=== PATIENT | female | born 1970 | race American Indian/Alaskan Native ===

== ENCOUNTER 2019-08-31 12:18 | Outpatient (CLI) | payer BC ==
--- NOTE | 2019-08-31 15:02 | Mammography Report ---
BILATERAL DIGITAL DIAGNOSTIC MAMMOGRAM WITH CAD -- 08/31/2019 RIGHT LIMITED BREAST ULTRASOUND INDICATION: Patient presents for evaluation of focal pain in the right breast. TECHNIQUE: Digital bilateral mammographic imaging was performed. Limited ultrasound was performed. T his examination was interpreted with the benefit of Computer-Aided Detection (CAD) analysis. COMPARISON: Prior mammograms 08/01/2018 and 03/15/2017 FINDINGS: Breast Density: The breasts are heterogeneously dense, which may obscure small masses. MAMMOGRAPHIC FINDINGS: There is no evidence of dominant mass, suspicious calcifications or architectu ral distortion in either breast. An oval mass with associated biopsy clip in the posterior central to 9:00 position of the right breast is slightly decreased in size compared with prior examination, cur rently measuring up to 1.2 cm, previously 1.6 cm; per history sheet, this is a biopsy-proven fibroade noma. Otherwise, there has been no significant change compared with the prior examinations. No mammog raphic abnormality to account for right breast pain, therefore targeted ultrasound subsequently perfo rmed. ULTRASOUND FINDINGS: Targeted ultrasound evaluation was performed of the area of interest. Targeted ultrasound of the area of focal pain in the 6 through 9:00 position of the right breast reveals dens e fibroglandular tissue. No suspicious cystic or solid lesion identified. IMPRESSION: 1. No suspicious mammographic or sonographic abnormality identified to account for area of focal pain in the right breast, therefore clinical correlation is recommended. Follow up recommendation: Routin e yearly BI-RADS Category 2: Benign. A "normal" or negative report should not discourage follow up or biopsy of a clinically significant f inding. A written summary of these findings will be mailed to the patient. The patient will be entered into a mammography reporting system which will generate a reminder letter for the patient's next appointmen t at the appropriate interval. According to the [employer], yearly mammograms are recommended starting at age 40 and continuing as long as a woman is in good health. Breast MRI is recommended for women with an josé miguel roximately 20-25% or greater lifetime risk of breast cancer, including women with a strong family his tory of breast or ovarian cancer and women who have been treated for Hodgkin's disease. Signer Name: Martine Cary MD Signed: 08/31/2019 2:58 PM Workstation Name: [id number]
== END 2019-08-31 12:19 | disposition home or self-care (01) ==
LOC: MAMMO 12:18
PROVIDERS: ATTEND Obstetrics & Gynecology
DX: D24.1 Benign neoplasm of right breast (principal); N63.41 Unspecified lump in right breast, subareolar; R92.2 Inconclusive mammogram
CPT/HCPCS: 77066

== ENCOUNTER 2020-09-19 14:41 | Outpatient (CLI) | payer BC ==
--- NOTE | 2020-09-19 18:00 | Mammography Report ---
DIGITAL SCREENING MAMMOGRAM WITH CAD, 09/19/2020 CLINICAL INFORMATION / INDICATION: Routine screening mammography. TECHNIQUE: Digital bilateral 2D mammography was obtained in the craniocaudal and mediolateral obliqu e projections. This examination was interpreted with the benefit of Computer-Aided Detection analysis . COMPARISON: 07/04/2018 FINDINGS: Breast Density: The breasts are heterogeneously dense, which may obscure small masses. No dominant mass, suspicious calcifications, or architectural distortion in either breast. Biopsy clip is again noted in the posterior lateral right breast. Overall, no significant interval ch debi. IMPRESSION: No mammographic evidence of malignancy. Follow up recommendation: Routine yearly BI-RADS Category 2: Benign. A "normal" or negative report should not discourage follow up or biopsy of a clinically significant f inding. A written summary of these findings will be mailed to the patient. The patient will be entered into a mammography reporting system which will generate a reminder letter for the patient's next appointmen t at the appropriate interval. The [employer] recommends yearly mammograms starting at age 40 and continuing as l lucrecia as a woman is in good health. Breast MRI is recommended for women with an approximate 20-25% or greater lifetime risk of breast cancer, including women with a strong family history of breast or ova sylvie cancer or who have been treated for Hodgkin's disease. Signer Name: Myrtle Tian MD Signed: 09/19/2020 5:56 PM Workstation Name: [id number]
== END 2020-09-19 14:42 | disposition home or self-care (01) ==
LOC: MAMMO 14:41
PROVIDERS: ATTEND Obstetrics & Gynecology
DX: Z12.31 Encounter for screening mammogram for malignant neoplasm of breast (principal); N64.89 Other specified disorders of breast
CPT/HCPCS: 77067